=== PATIENT | female | born 1995 | race Caucasian/White ===

== ENCOUNTER 2020-05-01 16:57 | Emergency (ER) | payer OTHER, SELFPAY ==
[~2020-05-01] VITALS: Ht 162.6 cm; Wt 77.1 kg
[2020-05-01 17:41] VITALS: BP 101/62
--- NOTE | 2020-05-01 17:44 | NUR ---
C/O HEADACHE X TODAY, DIARRHEA X 3 DAYS. AUNT HAS COVID +. MED HX": DENIES
--- NOTE | 2020-05-01 17:51 | NUR ---
COVID 19 SWAB COLLECTED FROM PT
[2020-05-01 18:51] VITALS: BP 101/62
--- NOTE | 2020-05-01 18:52 | NUR ---
PT DISCHARGED WITHOUT PAPERWORK, DID NOT RECEIVED PRESCRIPTION OF ACETAMINOPHEN 500MG
--- NOTE | 2020-05-01 19:04 | NUR ---
PT RETURNED FOR DISCHARGE PAPERWORK. PT RECEIVED PRESCRIPTION. UNDERSTAND DISCHARGE INSTRUCTIONS
== END 2020-05-01 18:52 | disposition home or self-care (01) ==
LOC: MED 16:57 → EEVIPCON 16:57 → MED 18:52
DX: B34.9 Viral infection, unspecified (principal); Z20.828 Contact with and (suspected) exposure to other viral communicable diseases; Z88.1 Allergy status to other antibiotic agents; Z88.8 Allergy status to other drugs, medicaments and biological substances
CPT/HCPCS: 99283; U0003